=== PATIENT | male | born 1970 | race Caucasian/White ===

== ENCOUNTER 2022-09-05 18:40 | Emergency (ER) | payer OTHER ==
[~2022-09-05] VITALS: Ht 182.9 cm; Wt 90.7 kg
[~2022-09-05 18:40] MED LIST: METO50TA7 PO; PRO40 PO
[2022-09-05 18:48] VITALS: BP_SYST 170
--- NOTE | 2022-09-05 18:48 | NUR ---
Patient to ER bed 01 to gown for evaluation. Side rails up.
--- NOTE | 2022-09-05 18:50 | NUR ---
Pt brought by ambulance, A&Ox4, pt presents to ER with skin rash after taking pantoprazole today, states he was taking medication previously for 3 months , stoped for one week and started today, denies SOB, VSS, respirations even and unlabored
--- NOTE | 2022-09-05 18:57 | NUR ---
Dr Landry evaluating patient at bedside
--- NOTE | 2022-09-05 19:30 | NUR ---
ER Dr. CAR at bedside examining patient.
--- NOTE | 2022-09-05 19:34 | NUR ---
Patient given written and verbal discharge instructions and verbalizes understanding. ER MD DR. CAR discussed with patient the results and treatment provided. Patient in stable condition. ID arm band removed. Patient educated on pain management and to follow up with PMD. Pain Scale 0/10. Opportunity for questions provided and answered. Medication side effect fact sheet provided.
== END 2022-09-05 19:34 | disposition home or self-care (01) ==
LOC: SED 18:40
DX: R21 Rash and other nonspecific skin eruption (principal); T47.1X5A Adverse effect of other antacids and anti-gastric-secretion drugs, initial encounter; I10 Essential (primary) hypertension; Z79.899 Other long term (current) drug therapy; Y92.89 Other specified places as the place of occurrence of the external cause
CPT/HCPCS: 99281